=== PATIENT | male | born 1985 | race Caucasian/White ===

== ENCOUNTER → 2018-11-23 | Day surgery (SDC) | payer OTHER ==
[~2018-11-23] MED LIST: ACETAMINOPHEN 1000 MG/100 ML IV ONE; BACITRACIN 50,000 UNIT VIAL ONE; BUPIVACAINE HCL 0.5% INJ 30 ML VIAL INJ ONE; DEXAMETHASONE SOD PHOS INJ 4 MG/ML VIAL ONE; FENTANYL CITRATE/PF 100MCG/2 ML INJ ONE; HYDROMORPHONE 2MG/ML 2 MG/ML ML ONE; KETOROLAC TROMETHAMINE 30 MG/ML VIAL ONE; LIDOCAINE HCL 2% LOCAL INJ 5 ML SDV VIAL INJ ONE; MIDAZOLAM HCL 2 MG/2 ML VIAL ONE; MOTRIN200 MG PO; NEOSTIGMINE 1 MG/ML 10ML VIAL ONE; NORCO 10-325 T1 EACH PO; ONDANSETRON HCL INJ 2MG/ML 2ML 2 MG/ML VIAL ONE; PROPOFOL IV EMULSION 10 MG/ML 20 ML VIAL ONE; SEVOFLURANE INHAL SOLN 250 ML PEN BTL ONE
[2018-11-23 10:15] VITALS: BP 137/92
--- NOTE | 2018-11-23 17:41 | Operative Report ---
DATE OF PROCEDURE: 11/23/2018 SURGEON: Kai Lua DPM PREOPERATIVE DIAGNOSES: Fractured ankle, tibia, fibula and ruptured syndesmosis. POSTOPERATIVE DIAGNOSES: Fractured ankle, tibia, fibula and ruptured syndesmosis. TITLE OF OPERATION: Open reduction with internal fixation of tibia, fibula, and syndesmosis. ANESTHESIA: General endotracheal. HEMOSTASIS: A thigh tourniquet on the right foot. PROCEDURE IN DETAIL: The patient was taken to the operating room in a mildly sedated state and placed upon the operating table in supine position. Following induction of general anesthetic, the right lower extremity was elevated to 60 degrees to exsanguinate before inflating the pneumatic thigh tourniquet to 350 mmHg to create hemostasis. The right lower extremity was placed on the operating table prior to performing following procedure. Procedure #1 under fluoroscopy, it was noted that the medial malleolus is fractured as is the fibula. The fibula is fractured in a spiral oblique from an area approximately at the level of the joint to an area posteriorly dislocated with flag sign approximately 2 cm above the joint. The area of the syndesmosis was noted to be significantly affected on MRI. This was confirmed via fluoroscopy and an attempt at closed reduction was performed. No movement was noted. An incision was made on the lateral aspect of the fibula. All superficial bleeders were electrocoagulated. It was noted that all neurological structures were retracted from harm's way including sural nerve. The fracture was identified and noted to be displaced posteriorly as previously mentioned. This was clamped after reduction was performed with a Pizano and Hanna elevators as well as bone clamps. With clamp in place, a lag screw was inserted from distal lateral fibula into the central aspect of the syndesmosis. This having been accomplished and excellent fixation noted, the clamp was removed and a buttress plate was applied. This plate ensured three screws distally and proximally with one being left for syndesmotic correction. Once the plate was in place and the fixation was noted to be excellent, the fluoroscopy was used to ascertain the degree of syndesmotic disruption. This was noted to be significant. A drill was made through the central canal into the tibia so this syndesmotic screw entered the plate laterally and exited the tibia catching both medial lateral cortices of the tibia. This allowed for good reduction of that syndesmotic ligament rupture. It was also noted that the tibia was in excellent alignment and stable in nature. Therefore, a screw was not inserted through the distal tibia, only the syndesmotic screw was in the tibia. This having been accomplished and the area irrigated with copious amounts of sterile saline solution. Deep closure was achieved with 2-0 Vicryl, 3-0 Vicryl and 4-0 nylon. The areas of surgery were then blocked with 0.5% Marcaine to the right ankle. A release of the pneumatic thigh tourniquet showed a normal hyperemic flush to all digits of the right foot. The appropriate mildly compressive dressings were applied. Posterior splint was applied. The patient left the operating room with vital signs stable in apparent satisfactory condition, having tolerated both the anesthetic and procedure very well. GAVINO Canales/CHANCE /[id number]
== END | disposition home or self-care (01) ==
LOC: OR 05:36
PROVIDERS: ATTEND Podiatrist Foot Surgery
DX: M84.363A Stress fracture, right fibula, initial encounter for fracture (principal); M84.361A Stress fracture, right tibia, initial encounter for fracture; M79.671 Pain in right foot; Z01.810 Encounter for preprocedural cardiovascular examination; Z01.812 Encounter for preprocedural laboratory examination; Z01.811 Encounter for preprocedural respiratory examination; Z88.5 Allergy status to narcotic agent
CPT/HCPCS: 27828; J0131; J1100; J1170; J1885; J2001; J2250; J2405; J2704; J2710

== ENCOUNTER → 2018-12-10 | Outpatient (CLI) | payer OTHER ==
[~2018-12-10] MED LIST changes: -ACETAMINOPHEN 1000 MG/100 ML IV ONE; -BACITRACIN 50,000 UNIT VIAL ONE; -BUPIVACAINE HCL 0.5% INJ 30 ML VIAL INJ ONE; -DEXAMETHASONE SOD PHOS INJ 4 MG/ML VIAL ONE; -FENTANYL CITRATE/PF 100MCG/2 ML INJ ONE; -HYDROMORPHONE 2MG/ML 2 MG/ML ML ONE; -KETOROLAC TROMETHAMINE 30 MG/ML VIAL ONE; -LIDOCAINE HCL 2% LOCAL INJ 5 ML SDV VIAL INJ ONE; -MIDAZOLAM HCL 2 MG/2 ML VIAL ONE; -NEOSTIGMINE 1 MG/ML 10ML VIAL ONE; -ONDANSETRON HCL INJ 2MG/ML 2ML 2 MG/ML VIAL ONE; -PROPOFOL IV EMULSION 10 MG/ML 20 ML VIAL ONE; -SEVOFLURANE INHAL SOLN 250 ML PEN BTL ONE
== END ==
LOC: RAD 11:08
PROVIDERS: ATTEND Podiatrist Foot Surgery
DX: I82.441 Acute embolism and thrombosis of right tibial vein (principal)
CPT/HCPCS: 93971

== ENCOUNTER → 2019-01-02 | Outpatient (CLI) | payer OTHER | LOC: RAD 12:20 | PROVIDERS: ATTEND Podiatrist Foot Surgery | DX: Z86.718 Personal history of other venous thrombosis and embolism (principal) | CPT/HCPCS: 93971 ==